=== PATIENT | male | born 1955 | race Hispanic/Latino ===

== ENCOUNTER 2021-01-18 11:34 | Emergency (ER) | payer SELFPAY ==
[~2021-01-18] VITALS: Ht 182.9 cm; Wt 91.0 kg
[2021-01-18] MEDS ORDERED: BENADRYL25 M1 PO (13:21)
[2021-01-18] MEDS ORDERED: EPIPEN 2-P0.3 MG/0.3 IM (13:21)
[2021-01-18] MEDS ORDERED: MEDDOSEPAK PO (13:21)
[2021-01-18 13:32] VITALS: BP 127/67
== END 2021-01-18 13:20 | disposition home or self-care (01) | DRG 918 ==
LOC: EDBD 11:34 → ED 11:34
DX: T63.441A Toxic effect of venom of bees, accidental (unintentional), initial encounter (principal); F17.200 Nicotine dependence, unspecified, uncomplicated

== ENCOUNTER 2021-04-11 13:46 | Emergency (ER) | payer SELFPAY ==
[~2021-04-11] VITALS: Ht 182.9 cm; Wt 90.0 kg
[~2021-04-11 13:46] MED LIST: BENADRYL25 M1 PO; EPIPEN 2-P0.3 MG/0.3 IM; MEDDOSEPAK PO
[2021-04-11 13:55] VITALS: BP 125/77
[2021-04-11] MEDS ORDERED: BACTRIM DS1 TAB PO (15:26)
[2021-04-11] MEDS ORDERED: CEPHALEXIN500 MG PO (15:26)
[2021-04-11 15:56] VITALS: BP 125/78
== END 2021-04-11 16:14 | disposition home or self-care (01) | DRG 607 ==
LOC: ED 13:46
PROC: 0H96XZZ Drainage of Back Skin, External Approach (ICD-10-PCS; principal; 2021-04-11)
DX: L72.3 Sebaceous cyst (principal); F17.200 Nicotine dependence, unspecified, uncomplicated

== ENCOUNTER 2022-02-13 11:10 | Emergency (ER) | payer MEDICARE ==
[~2022-02-13] VITALS: Ht 182.9 cm; Wt 80.0 kg
[~2022-02-13 11:10] MED LIST changes: +BACTRIM DS1 TAB PO; +CEPHALEXIN500 MG PO
[2022-02-13 11:19] VITALS: BP 125/77
[2022-02-13 11:30] VITALS: BP 110/66
[2022-02-13 12:00] VITALS: BP 105/54
[2022-02-13 12:15] VITALS: BP 105/72
[2022-02-13 12:30] VITALS: BP 101/67
[2022-02-13] MEDS ORDERED: MOTRIN400 MG/TAB PO (12:34)
[2022-02-13] MEDS ORDERED: FLEXERIL5 M1 PO (12:34)
[2022-02-13 12:41] VITALS: BP 106/68
== END 2022-02-13 12:43 | disposition home or self-care (01) ==
LOC: ED 11:10
DX: M25.511 Pain in right shoulder (principal); F17.200 Nicotine dependence, unspecified, uncomplicated

== ENCOUNTER 2022-10-03 16:33 | Emergency (ER) | payer MEDICARE ==
[~2022-10-03] VITALS: Ht 182.9 cm; Wt 86.0 kg
[~2022-10-03 16:33] MED LIST changes: +FLEXERIL5 M1 PO; +MOTRIN400 MG/TAB PO
[2022-10-03 19:51] VITALS: BP 125/73
== END 2022-10-03 19:51 | disposition left against medical advice (07) ==
LOC: ED 16:33 → LWOBS 19:51
DX: Z53.21 Procedure and treatment not carried out due to patient leaving prior to being seen by health care provider (principal)

== ENCOUNTER 2022-10-17 20:22 | Emergency (ER) | payer MEDICARE ==
[~2022-10-17] VITALS: Ht 182.9 cm; Wt 86.1 kg
[2022-10-17 20:40] VITALS: BP 130/69
[2022-10-17 21:01] VITALS: BP 104/69
[2022-10-17 21:10] LABS: BASO% 0.2 % (0-3); EOS% 3.2 % (0-8); HEMATOCRIT 39.5 % (39.0-50.0); HEMOGLOBIN 13.2 g/dl (14.0-18.0); IMMATURE GRANULOCYTES 0.2 % (0.0-5.0); LYMPH% 31.4 % (15-41); MEAN CELL VOLUME 93.2 fL CALC (80.0-100.0); MEAN CORPUSCULAR HGB 31.1 pG CALC (26.0-32.0); MEAN CORPUSCULAR HGB CONC 33.4 g/dL CAL (32.0-36.0); MONO% 7.6 % (2-13); NEUT# 3.79 thou/uL (1.82-7.42); NEUT% 57.4 % (42-76); RED BLOOD COUNT 4.24 mill/uL (4.70-6.10); RED CELL DISTRI WIDTH 12.3 % (11.5-15.5)
[2022-10-17 21:17] LABS: ALBUMIN 3.9 g/dL (3.2-5.0); ALKALINE PHOSPHATASE 50 u/l (38-126); ANION GAP 13 (6-22 (CALC)); BILIRUBIN, TOTAL 0.5 mg/dL (0.2-1.3); BUN 20 mg/dL (8-23); BUN/CREATININE RATIO 16 (12-20 (CALC)); CARBON DIOXIDE 22 mmol/l (22-30); CHLORIDE 109 mmol/l (95-108); CREATININE 1.3 mg/dL (0.7-1.3); GFR FOR AFR.AMER. > 60 ML/MIN (>=60 (CALC)); GFR OTHER RACES 55 ML/MIN (>=60 (CALC)); LIPASE 77 u/l (23-300); POTASSIUM 3.7 mmol/l (3.5-5.1); SGOT/AST 29 u/l (19-48); SODIUM 140 mmol/l (137-146); TOTAL PROTEIN 6.5 g/dL (6.3-8.2)
[2022-10-17] MEDS ORDERED: IVERMECTIN3 MG PO (21:29)
[2022-10-17 21:50] VITALS: BP 106/72
== END 2022-10-17 21:53 | disposition home or self-care (01) ==
LOC: ED 20:22
PROVIDERS: Family Medicine
DX: B76.9 Hookworm disease, unspecified (principal); K59.00 Constipation, unspecified; F17.200 Nicotine dependence, unspecified, uncomplicated

== ENCOUNTER 2022-10-24 18:14 | Emergency (ER) | payer MEDICARE ==
[~2022-10-24] VITALS: Ht 182.9 cm; Wt 85.4 kg
[~2022-10-24 18:14] MED LIST changes: +IVERMECTIN3 MG PO
[2022-10-24] MEDS ORDERED: KENALOG15 GM/TUBE EX (18:33)
[2022-10-24] MEDS ORDERED: DIPHENHYDRAM50 M2 PO (18:33)
[2022-10-24] MEDS ORDERED: MEDDOSEPAK PO (18:33)
[2022-10-24 19:00] VITALS: BP 108/69
[2022-10-24 19:30] VITALS: BP 108/69
== END 2022-10-24 19:30 | disposition home or self-care (01) ==
LOC: ED 18:14
DX: L25.9 Unspecified contact dermatitis, unspecified cause (principal)

== ENCOUNTER 2023-04-05 19:27 | Emergency (ER) | payer MEDICARE ==
[~2023-04-05] VITALS: Ht 182.9 cm; Wt 81.6 kg
[~2023-04-05 19:27] MED LIST changes: +DIPHENHYDRAM50 M2 PO; +KENALOG15 GM/TUBE EX
[2023-04-06] MEDS ORDERED: predniSONE 20 MG/TAB PO ONE (02:25)
[2023-04-06] MEDS ORDERED: DiphenhydrAMINE HCL 25 MG CPLT PO ONE (02:25)
[2023-04-06] MEDS ORDERED: FAMOTIDINE 20 MG/TAB PO ONE (02:25)
[2023-04-06] MEDS ORDERED: BENADRYL25 M1 PO (02:35)
[2023-04-06] MEDS ORDERED: PREDNISONE50 MG PO (02:35)
[2023-04-06] MEDS ORDERED: PEPCID40 MG PO (02:35)
[2023-04-06 02:41] VITALS: BP 102/67
== END 2023-04-06 02:54 | disposition home or self-care (01) ==
LOC: ED 19:27
DX: Z03.89 Encounter for observation for other suspected diseases and conditions ruled out (principal); Z20.822 Contact with and (suspected) exposure to COVID-19